=== PATIENT | female | born 1945 | race Caucasian/White ===

== ENCOUNTER 2016-11-13 13:14 | Day surgery (SDC) | payer BC, MEDICARE ==
--- NOTE | ~2016-11-13 | EGD ---
EGD REPORT [facility] [address] [place] [address] NAME: MALISSA HO : [birth year] STATUS : REG [facility]#: [id number] AGE: 71 ADM/REG DATE : 11/13/16 MR#: [id number] REPORT SERV DATE: 11/13/16 DICTATED BY: KARIE LARRY DATE: 11/13/16 REPORT STATUS : Draft TRANSCRIBED BY: [facility] DATE: 11/13/16 Pulmonology Patient Name: Malissa Ho Procedure Date: 11/13/2016 4:17 PM Date of : 1945 Attending MD: KARMEN LARRY MD Procedure Date No Time: 11/13/2016 Procedure: Bronchoscopy Indications: Mucus plugging, pill aspiration, chronic cough Providers: KARMEN LARRY MD Referring MD: BAIRON LOO MD Medicines: Lidocaine 2% 20 mL Complications: No immediate complications Procedure: Pre-Anesthesia Assessment: - A History and Physical has been performed. Patient meds and allergies have been reviewed. The risks and benefits of the procedure and the sedation options and risks were discussed with the patient. All questions were answered and informed consent was obtained. Patient identification and proposed procedure were verified prior to the procedure by the physician and the nurse in the pre-procedure area in the procedure room. Mental Status Examination: alert and oriented. Respiratory Examination: clear to auscultation. CV Examination: normal and RRR, no murmurs, no S3 or S4. ASA Grade Assessment: III - A patient with severe systemic disease. After reviewing the risks and benefits, the patient was deemed in satisfactory condition to undergo the procedure. The anesthesia plan was to use general anesthesia. Immediately prior to administration of medications, the patient was re-assessed for adequacy to receive sedatives. The heart rate, respiratory rate, oxygen saturations, blood pressure, adequacy of pulmonary ventilation, and response to care were monitored throughout the procedure. The physical status of the patient was re-assessed after the procedure. After obtaining informed consent, the BF 1T180 [id number] was introduced through the mouth, via laryngeal mask airway and advanced to the tracheobronchial tree. the BF 1T180 [id number] was introduced through the mouth, via laryngeal mask airway and advanced to the tracheobronchial tree. The procedure was accomplished without difficulty. The patient tolerated the procedure well. Findings: EGD REPORT [address] [place]. [address] NAME: MALISSA HO : [birth year] STATUS : [place] [facility] [place] [id number] AGE: 71 ADM/REG DATE : 11/13/16 MR#: [id number] REPORT SERV DATE: 11/13/16 DICTATED BY: KARIE LARRY DATE: 11/13/16 REPORT STATUS : Draft TRANSCRIBED BY: [email or web address] DATE: 11/13/16 The laryngeal mask airway is in normal position. The vocal cords move normally with breathing. The subglottic space is normal. The trachea is of normal caliber. The doug is sharp. The tracheobronchial tree was examined to at least the first subsegmental level. An area of soft tissue abnormality was noted at the 12 o clock position at the 4th tracheal ring (see pictures). Brushings were obtained in the trachea and sent for routine cytology. One sample was obtained. Endobronchial biopsies were performed in the trachea using a forceps and sent for histopathology examination. Three samples were obtained. Bronchoalveolar lavage was performed in the right middle lobe of the lung and sent for cell count, cytology, bacterial culture, viral smears \T\ culture, and fungal and AFB analysis. 180 mL of fluid were instilled. 30 mL were returned. The return was cellular. The FiO2 was lowered to less than 40% and argon plasma coagulation therapy was performed for destruction of tissue and hemostasis. Impression: - An area of soft tissue abnormality was noted at the 12 o clock position at the 4th tracheal ring (see pictures). - Endobronchial brushes and biopsy was performed - Bronchoalveolar lavage was performed. - No foreign body was idenified. - Thin secretions were aspirated. Recommendation: - Await test results. - Chest X-ray post-procedure. - Follow up in clinic with Dr. [place] Caraballo tomorrow 11/14/16 Attending Participation: I personally performed the entire procedure. KARMEN LARRY MD 11/13/2016 5:13 PM This report has been signed electronically. Number of Addenda: 0 Note Initiated On: 11/13/2016 4:17 PM [address] [id number]
[~2016-11-13 13:14] MED LIST: ADVAIR250 INH; AFRIN15 NAS; ALBUTEROL0.63 MG/3 INH; ASTEPRO0.15 % NAS; AUG875 PO; BEN25 PO; BIAXIN5 PO; CEFT2 PO; CEFT5 PO; CELEBREX2 PO; CILOXAN OPH; COMBIVENT INH; COMBIVENT RESPIM4 GM INH; COREG3 PO; COZ25 PO; DELTADOSE; DULERA 200 MCG/13 GM INH; FIORINAL PO; FIORINALC PO; FLONASE NAS; FOLIC PO; IMITREX100 MG PO; KDUR10 PO; KLOR-CON M1010 MEQ PO; L40 PO; LEVAQUIN750 MG PO; MAGOX4 PO; MAX25 PO; MAXZIDE PO; MELATONIN OTC PO; METHOTREXATE25 MG/ML SC; OMNICEF300 PO; OTC ANTACID PO; P10 PO; PR25 PO; PR25R PR; PRILOSEC10 MG PO; PROVENTSOL INH; REMICADE IV; TIKOSYN 250 M250 MCG PO; TYLENOL ARTH650 MG PO; XARELTO20 MG PO; XYZAL5 MG PO; ZOFRAN8 PO; ZYRTEC ALLGY10 MG PO; [UNRECOGNIZED DRUG - REMARK] OT
[2016-11-13 13:43] LABS: BASOPHILS 0.5 %; BASOPHILS ABSOLUTE 0.05 10/3/uL (0.0-0.16); EOSINOPHILS 1.9 %; HEMATOCRIT 39.3 % (36.0-48.0); IMMATURE GRANULOCYTES 1.2 %; IMMATURE GRANULOCYTES ABSOLUTE 0.13 10/3/uL (0.0-0.11); LYMPHOCYTES 24.8 %; LYMPHOCYTES ABSOLUTE 2.61 10/3/uL (0.67-4.30); MEAN CORPUS HGB CONC 33.1 g/dL (32.0-36.0); MEAN CORPUSCULAR HEMOGLOB 31.1 pg (26.0-34.0); MEAN PLATELET VOLUME 10.5 fL (9.2-13.0); MONOCYTES 7.9 %; MONOCYTES ABSOLUTE 0.83 10/3/uL (0.21-1.20); NEUTROPHILS 63.7 %; NEUTROPHILS ABSOLUTE 6.69 10/3/uL (2.02-8.40); RBC DISTRIBUTION WIDTH 13.2 % (12.0-16.0); RED CELL COUNT 4.18 10/6/uL (4.0-5.6); WHITE BLOOD CELLS 10.5 10/3/uL (4.5-10.5)
[2016-11-13 13:47] LABS: INTERNATIONAL NORMAL RATI 1.1 UNITS (-); PARTIAL THROMBO TIME 26.7 SEC (22.5-37.2); PROTIME (NOT ORD) 13.9 SEC (12.0-14.5)
[2016-11-13 13:48] LABS: MANUAL DIFF NO %; PLATELET COUNT 289 10/3/uL (150-400)
[2016-11-13 13:54] LABS: BUN (BLOOD UREA NITROGEN) 10 MG/DL (6-23); CALCIUM, SERUM 8.9 MG/DL (8.5-10.4); CHLORIDE, SERUM 109 MMOL/L (96-112); CO2 (CARBON DIOXIDE) 29 MMOL/L (24-34); CREATININE 0.68 MG/DL (0.55-1.02); GFR AFRICAN AMERICAN 103 ML/MIN (>=60); GFR NON AFRICAN AMERICAN 89 ML/MIN (>=60); GLUCOSE, SERUM 85 MG/DL (60-99); POTASSIUM, SERUM 4.2 MMOL/L (3.5-5.3); SODIUM, SERUM 145 MMOL/L (135-148)
[2016-11-13 19:58] LABS: BD FL LYMPH (NOT ORD) 14 %; BF BASO (NOT OF) 0 %; BF LARGE MONONUCLEAR 67 %; BODY FLUID EOS (NOT ORD) 0 %; BODY FLUID SEG (NOT ORD) 19 %
[2016-11-13 19:59] LABS: BD FL SOURCE (NOT ORD) BAL; BF TOTAL CELL CT (NOT ORD 170 /MM3; BODY FLUID RBC (NOT ORD) < 1000 /MM3
== END 2016-11-13 20:23 | disposition home or self-care (01) ==
LOC: DMU 13:14
PROVIDERS: Anesthesiology; Internal Medicine
PROC: 0BB18ZX Excision of Trachea, Via Natural or Artificial Opening Endoscopic, Diagnostic (ICD-10-PCS; 2016-11-13)
PROC: 0BB18ZX Excision of Trachea, Via Natural or Artificial Opening Endoscopic, Diagnostic (ICD-10-PCS; principal; 2016-11-13 14:00)
PROC: 0B958ZX Drainage of Right Middle Lobe Bronchus, Via Natural or Artificial Opening Endoscopic, Diagnostic (ICD-10-PCS; 2016-11-13 14:00)
PROC: 0B9D8ZX Drainage of Right Middle Lung Lobe, Via Natural or Artificial Opening Endoscopic, Diagnostic (ICD-10-PCS; 2016-11-13 14:00)
DX: J44.9 Chronic obstructive pulmonary disease, unspecified (principal); T17.900A Unspecified foreign body in respiratory tract, part unspecified causing asphyxiation, initial encounter; G47.33 Obstructive sleep apnea (adult) (pediatric); Z79.899 Other long term (current) drug therapy; Z88.0 Allergy status to penicillin; Z88.8 Allergy status to other drugs, medicaments and biological substances; M19.90 Unspecified osteoarthritis, unspecified site; J45.909 Unspecified asthma, uncomplicated; I48.91 Unspecified atrial fibrillation; K21.9 Gastro-esophageal reflux disease without esophagitis; G43.909 Migraine, unspecified, not intractable, without status migrainosus; L40.50 Arthropathic psoriasis, unspecified; M06.9 Rheumatoid arthritis, unspecified; I10 Essential (primary) hypertension; Z87.442 Personal history of urinary calculi; Z90.710 Acquired absence of both cervix and uterus; Z98.890 Other specified postprocedural states; Z80.0 Family history of malignant neoplasm of digestive organs
CPT/HCPCS: 71010; 80048; 85025; 85610; 85730; 87015; 87070; 87102; 87116; 87205; 88112; 88305; 88312; 89051; 93005; 94640; A9270-GY; J1170; J2250; J2405; J3010

== ENCOUNTER 2016-11-21 06:32 | Day surgery (SDC) | payer BC, MEDICARE ==
--- NOTE | ~2016-11-21 | EGD ---
EGD REPORT [facility] [address] [id number] NAME: MALISSA HO : [birth year] STATUS : REG [facility]#: [id number] AGE: 71 ADM/REG DATE : 11/21/16 MR#: [id number] REPORT SERV DATE: 11/21/16 DICTATED BY: DATE: REPORT STATUS : Draft TRANSCRIBED BY: [employer] DATE: 11/21/16 [facility] Patient Name: Malissa Ho Date of : 1945 Attending MD: NANY CHE MD Procedure Date No Time: 11/21/2016 Procedure: Upper GI endoscopy Indications: Dysphagia, Esophageal reflux symptoms that persist despite appropriate therapy Referring MD: Lisa Brandon Medicines: Monitored Anesthesia Care Complications: No immediate complications. Procedure: Pre-Anesthesia Assessment: - ASA Grade Assessment: III - A patient with severe systemic disease. After obtaining informed consent, the endoscope was passed under direct vision. Throughout the procedure, the patient's blood pressure, pulse, and oxygen saturations were monitored continuously. The GIF H190 [id number] was introduced through the mouth, and advanced to the third part of duodenum. The upper GI endoscopy was accomplished without difficulty. The patient tolerated the procedure well. Findings: A 2 cm hiatus hernia was present. A benign-appearing, intrinsic mild stenosis measuring less than one cm (in length) was found 37 cm from the incisors and was traversed. Biopsies were taken with a cold forceps for histology. A guidewire was placed and the scope was withdrawn. Dilation was performed with a Savary dilator with no resistance at 54 Fr. The Z-line was irregular and was found 37 cm from the incisors. Biopsies were obtained, as above. No other significant abnormalities were identified in a careful examination of the esophagus. There is no endoscopic evidence of areas of erosion, ulcerations or varices in the entire esophagus. The entire examined stomach was normal. There is no endoscopic evidence of mucosal abnormalities, ulceration or varices in the entire examined stomach. The examined duodenum was normal. There is no endoscopic evidence of inflammation, mucosal abnormalities or ulceration in the entire examined duodenum. The cardia and gastric fundus were otherwise normal on retroflexion. EGD REPORT [address] [address] NAME: MALISSA HO : [birth year] STATUS : [place] [facility] [place]#: [id number] AGE: 71 ADM/REG DATE : 11/21/16 MR#: [id number] REPORT SERV DATE: 11/21/16 DICTATED BY: DATE: REPORT STATUS : Draft TRANSCRIBED BY: [email or web address] DATE: 11/21/16 Impression: - Hiatus hernia. - Benign-appearing esophageal stricture. Biopsied. Dilated. - Z-line irregular, 37 cm from the incisors. - Normal stomach. - Normal examined duodenum. Recommendation: - Regular diet. - Patient has a contact number available for emergencies. The signs and symptoms of potential delayed complications were discussed with the patient. Return to normal activities tomorrow. Written discharge instructions were provided to the patient. - Discharge patient to home. - Continue present medications. - Await pathology results. Procedure Code(s): --- Professional --- 85672, Esophagogastroduodenoscopy, flexible, transoral; with insertion of guide wire followed by passage of dilator(s) through esophagus over guide wire 59014, Esophagogastroduodenoscopy, flexible, transoral; with biopsy, single or multiple Diagnosis Code(s): --- Professional --- K44.9, Diaphragmatic hernia without obstruction or gangrene K22.2, Esophageal obstruction K22.8, Other specified diseases of esophagus R13.10, Dysphagia, unspecified K21.9, Gastro-esophageal reflux disease without esophagitis CPT copyright 2013 [employer]. All rights reserved. The codes documented in this report are preliminary and upon studio engineer review may be revised to meet current compliance requirements. NANY CHE MD 11/21/2016 7:40 AM This report has been signed electronically. Number of Addenda: 0 Note Initiated On: 11/21/2016 7:31 AM Scope Withdrawal Time 0 hours 0 minutes 0 seconds EGD REPORT [facility] [address] [id number] NAME: MALISSA HO : [birth year] STATUS : [place] [facility] [place]#: [id number] AGE: 71 ADM/REG DATE : 11/21/16 MR#: [id number] REPORT SERV DATE: 11/21/16 DICTATED BY: DATE: REPORT STATUS : Draft TRANSCRIBED BY: [employer] DATE: 11/21/16 [address] [id number]
--- NOTE | ~2016-11-21 | EGD ---
EGD REPORT [facility] [address] [id number] NAME: MALISSA HO : [birth year] STATUS : REG [facility]#: [id number] AGE: 71 ADM/REG DATE : 11/21/16 MR#: [id number] REPORT SERV DATE: 11/21/16 DICTATED BY: DATE: REPORT STATUS : Draft TRANSCRIBED BY: [employer] DATE: 11/21/16 [facility] Patient Name: Malissa Ho Date of : 1945 Attending MD: NANY CHE MD Procedure Date No Time: 11/21/2016 Procedure: Colonoscopy Indications: High risk colon cancer surveillance: Personal history of colonic polyps Referring MD: Lisa Brandon Medicines: Monitored Anesthesia Care Complications: No immediate complications. Procedure: Pre-Anesthesia Assessment: - ASA Grade Assessment: III - A patient with severe systemic disease. After I obtained informed consent, the scope was passed under direct vision. Throughout the procedure, the patient's blood pressure, pulse, and oxygen saturations were monitored continuously. The PCF [id number] was introduced through the anus and advanced to the cecum, identified by appendiceal orifice and ileocecal valve. The colonoscopy was performed without difficulty. The patient tolerated the procedure well. The quality of the bowel preparation was good. Findings: The perianal exam was abnormal. Findings include hemorrhoids. Many small-mouthed diverticula were found in the sigmoid colon. Three flat polyps were found in the ascending colon and in the cecum. The polyps were diminutive in size. These polyps were removed with a cold biopsy forceps. Resection and retrieval were complete. A flat polyp was found at the hepatic flexure. The polyp was small in size. The polyp was removed with a cold snare. Resection and retrieval were complete. No other significant abnormalities were identified in a careful examination of the remainder of the colon. No other significant abnormalities were identified in a careful examination of the remainder of the colon. There is no endoscopic evidence of inflammation, mass, ulcerations or angioectasia in the entire colon. No additional abnormalities were found on retroflexion. Impression: - Hemorrhoids found on perianal exam. - Diverticulosis in the sigmoid colon. - Three diminutive polyps in the ascending colon and in EGD REPORT [address] [place]. [address] NAME: MALISSA HO : [birth year] STATUS : REG [facility]#: [id number] AGE: 71 ADM/REG DATE : 11/21/16 MR#: [id number] REPORT SERV DATE: 11/21/16 DICTATED BY: DATE: REPORT STATUS : Draft TRANSCRIBED BY: [employer] DATE: 11/21/16 the cecum. Resected and retrieved. - One small polyp at the hepatic flexure. Resected and retrieved. Recommendation: - Patient has a contact number available for emergencies. The signs and symptoms of potential delayed complications were discussed with the patient. Return to normal activities tomorrow. Written discharge instructions were provided to the patient. - Discharge patient to home. - High fiber diet. - Continue present medications. - Await pathology results. - Repeat colonoscopy in 3 - 5 years for surveillance based on pathology results. Procedure Code(s): --- Professional --- 74190, Colonoscopy, flexible, proximal to splenic flexure; with removal of tumor(s), polyp(s), or other lesion(s) by snare technique 67350, 59, Colonoscopy, flexible, proximal to splenic flexure; with biopsy, single or multiple Diagnosis Code(s): --- Professional --- K64.9, Unspecified hemorrhoids K57.30, Diverticulosis of large intestine without perforation or abscess without bleeding D12.3, Benign neoplasm of transverse colon D12.2, Benign neoplasm of ascending colon D12.0, Benign neoplasm of cecum Z86.010, Personal history of colonic polyps CPT copyright 2013 [employer]. All rights reserved. The codes documented in this report are preliminary and upon business proposal rep review may be revised to meet current compliance requirements. NANY CHE MD 11/21/2016 7:59 AM This report has been signed electronically. Number of Addenda: 0 Note Initiated On: 11/21/2016 7:27 AM Scope Withdrawal Time 0 hours 12 minutes 4 seconds EGD REPORT [facility] [address] [id number] NAME: MALISSA HO : [birth year] STATUS : REG [facility] [place] PAT#: [id number] AGE: 71 ADM/REG DATE : 11/21/16 MR#: [id number] REPORT SERV DATE: 11/21/16 DICTATED BY: DATE: REPORT STATUS : Draft TRANSCRIBED BY: [employer] DATE: 11/21/16 [facility] [place] [id number]
== END 2016-11-21 23:59 | disposition home or self-care (01) ==
LOC: DMU 06:32
PROVIDERS: Internal Medicine Gastroenterology
PROC: 0DB48ZX Excision of Esophagogastric Junction, Via Natural or Artificial Opening Endoscopic, Diagnostic (ICD-10-PCS; 2016-11-21)
PROC: 0DBL8ZX Excision of Transverse Colon, Via Natural or Artificial Opening Endoscopic, Diagnostic (ICD-10-PCS; principal; 2016-11-21 08:00)
PROC: 0DBK8ZX Excision of Ascending Colon, Via Natural or Artificial Opening Endoscopic, Diagnostic (ICD-10-PCS; 2016-11-21 08:00)
PROC: 0DBH8ZZ Excision of Cecum, Via Natural or Artificial Opening Endoscopic (ICD-10-PCS; 2016-11-21 08:00)
PROC: 0D748ZZ Dilation of Esophagogastric Junction, Via Natural or Artificial Opening Endoscopic (ICD-10-PCS; 2016-11-21 08:00)
DX: K63.5 Polyp of colon (principal); K22.8 Other specified diseases of esophagus; K57.30 Diverticulosis of large intestine without perforation or abscess without bleeding; K22.2 Esophageal obstruction; K44.9 Diaphragmatic hernia without obstruction or gangrene; K21.9 Gastro-esophageal reflux disease without esophagitis; I10 Essential (primary) hypertension; I48.91 Unspecified atrial fibrillation; G43.909 Migraine, unspecified, not intractable, without status migrainosus; J45.909 Unspecified asthma, uncomplicated; M19.90 Unspecified osteoarthritis, unspecified site; L40.50 Arthropathic psoriasis, unspecified; N20.0 Calculus of kidney; Z88.1 Allergy status to other antibiotic agents; Z86.010 Personal history of colon polyps; Z79.899 Other long term (current) drug therapy; Z88.0 Allergy status to penicillin; Z90.49 Acquired absence of other specified parts of digestive tract; Z90.710 Acquired absence of both cervix and uterus; Z96.1 Presence of intraocular lens; Z98.41 Cataract extraction status, right eye; Z98.42 Cataract extraction status, left eye; Z98.890 Other specified postprocedural states
CPT/HCPCS: 88305